=== PATIENT | male | born 1980 | race Caucasian/White ===

== ENCOUNTER 2024-06-17 05:21 | Emergency (ER) | payer OTHER ==
[~2024-06-17] VITALS: Ht 185.4 cm; Wt 106.6 kg
[2024-06-17] MEDS ORDERED: Diphth,Pertuss(Acell),Tet Vac 0.5 ML VIAL IM ONE (06:15)
== END 2024-06-17 07:17 | disposition home or self-care (01) ==
LOC: ER 05:21
DX: S61.512A Laceration without foreign body of left wrist, initial encounter (principal); W26.0XXA Contact with knife, initial encounter
CPT/HCPCS: 90715